=== PATIENT | male | born 1955 | race Caucasian/White ===

== ENCOUNTER 2017-05-04 06:44 | Day surgery (SDC) | payer BC, OTHER ==
[~2017-05-04 06:44] MED LIST: Lactated Ringers 1,000 ML IV SCH
[2017-05-04] MEDS ORDERED: fentaNYL 100 MCG/2 ML SDV ONE (08:42)
[2017-05-04] MEDS ORDERED: Propofol 200 MG/20 ML SDV ONE (08:42)
[2017-05-04] MEDS ORDERED: Midazolam 1 MG/ML 2 ML SDV ONE (08:42)
--- NOTE | 2017-05-04 13:28 | OR ---
DATE OF PROCEDURE: 05/04/2017 PROCEDURE: Colonoscopy. FINDINGS: Diverticulosis, mild, limited to sigmoid colon. COMPLICATIONS: None. 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 ANESTHESIA: MAC. PREOPERATIVE DIAGNOSIS: Family history of colorectal cancer. POSTOPERATIVE DIAGNOSIS: Family history of colorectal cancer. RISKS: Risks, benefits, alternatives, and limitations including, but not limited to infection, bleeding, and perforation were explained to the patient, and they wished to proceed. PROCEDURE IN DETAIL: The patient was placed in left lateral decubitus position. Digital rectal exam was performed without abnormality. The scope was introduced and advanced atraumatically to the ileocecal valve. The scope was brought back through the ascending, transverse, descending colon, and retroflexed. No polyps. No old or new blood. The patient was noted to have diverticulosis, which was limited to the sigmoid colon, which will be described as mild. No abnormalities on retroflexion. The patient tolerated the procedure well. oY Maguire MD /[id number]
== END 2017-05-04 10:20 | disposition home or self-care (01) ==
LOC: JP.SDS 06:44
PROVIDERS: ATTEND Surgery
DX: Z12.11 Encounter for screening for malignant neoplasm of colon (principal); K57.30 Diverticulosis of large intestine without perforation or abscess without bleeding; Z80.0 Family history of malignant neoplasm of digestive organs
CPT/HCPCS: 45378; J2250; J2704; J3010; J7120

== ENCOUNTER 2021-02-22 12:24 | Emergency (ER) | payer OTHER ==
--- NOTE | 2021-02-22 13:31 | EDM.PDOC ---
ED HPI GENERAL MEDICAL PROBLEM - General Chief Complaint: Head Injury Stated Complaint: FALL HIT HEAD Time Seen by Provider: 02/22/21 13:26 Source of Information: Reports: Patient, RN Notes Reviewed History Limitations: Reports: No Limitations - History of Present Illness INITIAL COMMENTS - FREE TEXT/NARRATIVE: 65-year-old gentleman presents emergency department day following a head injury, he currently is on Coumadin has been anti-Xa anticoagulated for some time states he fell a couple of days ago but now is having symptoms of headache, dizziness worse with head turning he feels unstable on his feet - Related Data Allergies Allergy/AdvReac Type Severity Reaction Status Date / Time No Known Allergies Allergy Verified 02/22/21 13:03 Home Meds: Home Meds Acetaminophen [Tylenol] 3 tab PO ASDIRECTED PRN 05/02/17 [History] Amoxicillin 4 tab PO ASDIRECTED PRN 05/02/17 [History] Ferrous Sulfate 325 mg PO DAILY 05/02/17 [History] Furosemide [Lasix] 80 mg PO DAILY 05/02/17 [History] Metoprolol Tartrate [Lopressor] 50 mg PO BID 05/02/17 [History] Multivitamin with Minerals [Multiple Vitamin] 1 tab PO DAILY 05/02/17 [History] Vardenafil HCl [Levitra] 20 mg PO ASDIRECTED PRN 05/02/17 [History] Warfarin [Coumadin] 5 mg PO DAILY 05/02/17 [History] allopurinoL [Zyloprim] 100 mg PO DAILY 05/02/17 [History] atorvaSTATin [Lipitor] 10 mg PO DAILY 05/02/17 [History] predniSONE [Prednisone] 5 mg PO ASDIRECTED 05/02/17 [History] Ibuprofen [Advil] 600 mg PO ASDIRECTED PRN 02/22/21 [History] Past Medical History HEENT History: Reports: Impaired Vision Cardiovascular History: Reports: Heart Murmur, High Cholesterol, Hypertension Respiratory History: Reports: Sleep Apnea Gastrointestinal History: Reports: Colon Polyp, GERD Musculoskeletal History: Reports: Back Pain, Chronic, Gout, Osteoarthritis Endocrine/Metabolic History: Reports: Obesity/BMI 30+ - Infectious Disease History Infectious Disease History: Reports: C-Difficile, Chicken Pox, Measles, Mumps - Past Surgical History HEENT Surgical History: Reports: Tonsillectomy Cardiovascular Surgical History: Reports: Valve Replacement Respiratory Surgical History: Reports: None GI Surgical History: Reports: Appendectomy, Colonoscopy, EGD, Hernia, Inguinal Endocrine Surgical History: Reports: None Neurological Surgical History: Reports: Laminectomy Musculoskeletal Surgical History: Reports: Arthroscopic Knee Social & Family History - Tobacco Use Tobacco Use Status *Q: Never Tobacco User - Caffeine Use Caffeine Use: Reports: Coffee ED ROS GENERAL - Review of Systems Review Of Systems: See Below Constitutional: Reports: No Symptoms Cardiovascular: Reports: Lightheadedness Neurological: Reports: Dizziness, Gait Disturbance ED EXAM, HEAD INJURY - Physical Exam Exam: See Below Exam Limited By: No Limitations General Appearance: Alert, WD/WN, No Apparent Distress Head: Atraumatic, Normocephalic Eyes: Bilateral Eye: EOMI, Normal Inspection, PERRL Ears: Normal External Exam, Normal Canal, Hearing Grossly Normal, Normal TMs Throat/Mouth: Normal Inspection, Normal Lips, Normal Teeth, Normal Gums, Normal Oropharynx, Normal Voice, No Airway 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 As Tested, No Motor/Sensory Deficits, Alert, Normal Mood/Affect, Oriented x 3 Course - Vital Signs Last Recorded V/S: Last Vital Signs Temp 97.2 F 02/22/21 13:18 Pulse 73 02/22/21 13:18 Resp 16 02/22/21 13:18 BP 125/80 02/22/21 13:18 Pulse Ox 97 02/22/21 13:18 Departure - Departure Time of Disposition: 14:33 Disposition: Home, Self-Care 01 Condition: Fair Clinical Impression: Concussion injury of brain Head injury Qualifiers: Encounter type: initial encounter Qualified Code(s): S09.90XA - Unspecified injury of head, initial encounter - Discharge Information Instructions: Head Injury, Adult, Concussion, Adult Referrals: Ozzy Sams MD [Primary Care Provider] - Forms: ED Department Discharge Additional Instructions: Symptomatic care, please followup with your primary care provider in 3-5 days if not better, please call return to the emergency department with worsening of symptoms. Sepsis Event Note (ED) - Evaluation Sepsis Screening Result: No Definite Risk - Focused Exam Vital Signs: Vital Signs Temp Pulse Resp BP Pulse Ox 02/22/21 13:18 97.2 F 73 16 125/80 97 02/22/21 13:01 97.2 F 73 16 125/80 97 - Assessment/Plan Plan: Assessment Acuity = acute Site and laterality = concussion Etiology = fall with head injury Manifestations = headache, dizziness Location of injury = Home Lab values = CT scan of the head shows no acute process Plan I did review head CT scan results with him he is can follow-up with his primary care if he still having symptoms This note was dictated using [employer] voice recognition software please call with any questions on syntax or grammar.
--- NOTE | 2021-02-22 14:23 | CT ---
Head wo Cont CLINICAL HISTORY: Injury, on blood thinners COMPARISON: None TECHNIQUE: Transverse scans were obtained from the base of the skull through the vertex without IV contrast on a multislice, multidetector CT scanner. Auto dosage reduction and iterative reconstruction techniques employed. FINDINGS: No focal abnormal parenchymal density is identified. There is no mass effect, hemorrhage, or extraaxial collection. The basal cisterns and sulci over the convexities are mildly prominent. The ventricles are normal for age. There is ethmoid and also thickening IMPRESSION: No acute intracranial process Ethmoid sinusitis
== END 2021-02-22 14:50 | disposition home or self-care (01) ==
LOC: JP.ED 12:24
DX: S06.0X0A Concussion without loss of consciousness, initial encounter (principal); E78.00 Pure hypercholesterolemia, unspecified; I10 Essential (primary) hypertension; K21.9 Gastro-esophageal reflux disease without esophagitis; E66.9 Obesity, unspecified; Z68.41 Body mass index [BMI] 40.0-44.9, adult; Z79.01 Long term (current) use of anticoagulants; W18.39XA Other fall on same level, initial encounter
CPT/HCPCS: 70450; 70450-26; 99283-25